=== PATIENT | female | born 2000 | race Two or more races ===

== ENCOUNTER 2020-12-27 22:18 | Emergency (ER) | payer OTHER, MEDICAID ==
[~2020-12-27] VITALS: Ht 160 cm; Wt 113.4 kg
[2020-12-27] MEDS ORDERED: ALBUTEROL SULF 2.5 MG/0.5ML(0.5%) NEB SOLN NEB ONE (22:30)
[2020-12-27] MEDS ORDERED: methylPREDNISolone SOD SUCC 125 MG/2 ML VL IM ONE (23:15)
[2020-12-27 23:47] VITALS: BP 123/52
== END 2020-12-27 23:48 | disposition home or self-care (01) ==
LOC: ER 22:18
DX: J45.901 Unspecified asthma with (acute) exacerbation (principal)
CPT/HCPCS: 94640; 96372; 99283; J2930

== ENCOUNTER 2021-04-13 01:07 | Emergency (ER) | payer OTHER, MEDICAID ==
[~2021-04-13] VITALS: Ht 160 cm; Wt 99.8 kg
[2021-04-13] MEDS ORDERED: SUMAtriptan SUCCINATE 6 MG/0.5 ML VL SC ONE (02:00)
[2021-04-13] MEDS ORDERED: ONDANSETRON ODT 4 MG TAB PO ONE (03:45)
[2021-04-13 05:11] VITALS: BP 113/72
== END 2021-04-13 05:20 | disposition home or self-care (01) ==
LOC: ER 01:09
DX: G43.909 Migraine, unspecified, not intractable, without status migrainosus (principal); E66.9 Obesity, unspecified; Z68.39 Body mass index [BMI] 39.0-39.9, adult; J45.909 Unspecified asthma, uncomplicated
CPT/HCPCS: 96372; 99283; J3030; Q0162